=== PATIENT | male | born 1980 | race Caucasian/White ===

== ENCOUNTER → 2018-02-08 07:04 | Outpatient (CLI) | payer OTHER, SELFPAY ==
[2018-02-08 09:04] LABS: Alanine Aminotransferase 43 IU/L (21-72); Albumin 4.2 g/dL (3.5-5.0); Albumin Globulin Ratio 1.7 (1.0-2.8); Alkaline Phosphatase 64 U/L (38-126); Aspartate Aminotransferase 24 IU/L (17-59); Bilirubin Total 0.8 mg/dL (0.2-1.3); Bilirubin Unconjugated 0.6 mg/dL (0.0-1.1); Globulin 2.5 g/dL (1.7-4.1); HEMOLYSIS < 15 (0-50); Total Protein 6.7 g/dL (6.3-8.2)
== END ==
PROVIDERS: PCP Internal Medicine; Visit Provider Internal Medicine
DX: M10.9 Gout, unspecified (principal)
CPT/HCPCS: 36415; 80076; 84550

== ENCOUNTER → 2018-03-15 14:43 | Outpatient (CLI) | payer OTHER, SELFPAY ==
[2018-03-15 14:58] LABS: Add Manual Diff / Slide Review NO; Basophils Percent Auto 0.9 % (0-2); Eosinophils Percent Auto 2.8 % (2-4); Hematocrit 41.6 % (41-53); Lymphocytes Percent Auto 32.8 % (25-40); Mean Corpuscular HGB Conc 36.1 % (30-36); Mean Corpuscular Hemoglobin 29.5 PG (26-34); Mean Corpuscular Volume 81.6 fL (80-100); Monocytes Percent Auto 8.3 % (3-14); Neutrophils Absolute Auto 4200 /uL (3000-5900); Neutrophils Percent Auto 55.2 % (50-75); Platelet Count 234 X10^3/uL (150-400); Red Cell Distribution Width 13.2 % (11.6-14.8); White Blood Cell Count 7.7 X10^3/uL (4.5-11.0)
[2018-03-15 16:15] LABS: Alanine Aminotransferase 47 IU/L (21-72); Albumin 4.3 g/dL (3.5-5.0); Albumin Globulin Ratio 1.6 (1.0-2.8); Alkaline Phosphatase 60 U/L (38-126); Aspartate Aminotransferase 28 IU/L (17-59); Bilirubin Total 0.4 mg/dL (0.2-1.3); Bilirubin Unconjugated 0.1 mg/dL (0.0-1.1); Globulin 2.7 g/dL (1.7-4.1); HEMOLYSIS < 15 (0-50); Uric Acid 7.7 mg/dL (3.5-8.5)
== END ==
PROVIDERS: PCP Internal Medicine; Visit Provider Internal Medicine
DX: B35.1 Tinea unguium (principal); M10.9 Gout, unspecified
CPT/HCPCS: 36415; 80076; 84550; 85025

== ENCOUNTER → 2018-06-28 07:37 | Outpatient (CLI) | payer OTHER, SELFPAY ==
[2018-06-28 09:54] LABS: Alanine Aminotransferase 63 IU/L (21-72); Albumin 4.4 g/dL (3.5-5.0); Albumin Globulin Ratio 1.7 (1.0-2.8); Alkaline Phosphatase 65 U/L (38-126); Aspartate Aminotransferase 29 IU/L (17-59); BUN Creatinine Ratio 15.6 (6-22); Bilirubin Total 0.7 mg/dL (0.2-1.3); Blood Urea Nitrogen 14 mg/dL (9-20); Calcium 9.6 mg/dL (8.4-10.2); Carbon Dioxide 28 mmol/L (22-32); Chloride 100 mmol/L (98-107); Estimated Glomerular Filt Rate > 60.0 mL/min (>60); Globulin 2.6 g/dL (1.7-4.1); Glucose 88 mg/dL (70-100); HEMOLYSIS < 15 (0-50); Potassium 4.3 mmol/L (3.4-5.1); Sodium 142 mmol/L (137-145); Uric Acid 9.5 mg/dL (3.5-8.5)
== END ==
PROVIDERS: PCP Internal Medicine; Visit Provider Internal Medicine
DX: M10.9 Gout, unspecified (principal); R79.89 Other specified abnormal findings of blood chemistry
CPT/HCPCS: 36415; 80053; 84550

== ENCOUNTER → 2020-03-30 13:49 | Outpatient (CLI) | payer OTHER, SELFPAY ==
--- NOTE | 2020-03-30 | DI.MRI.S_ITS ---
PROCEDURE: MR HEAD/BRAIN WO/W CON INDICATIONS: Tremor, unspecified TECHNIQUE: Noncontrast axial T1 spin echo, axial T2 fast spin echo, sagittal and axial FLAIR, coronal T2 fast spin echo, axial gradient echo, axial diffusion and ADC through the brain. After the administration of contrast, axial and coronal 3D VIBE or T1 spin echo with fat saturation through the brain. COMPARISON: None. FINDINGS: Image quality: Excellent. CSF Spaces: Basal cisterns are patent. No extra-axial fluid collections. Ventricles are normal in size and shape. Brain: No midline shift. No intracranial bleeds or masses. No abnormal intracranial enhancement. The brainstem appears normal. Diffusion-weighted images demonstrate no acute ischemic insults. No chronic ischemic insults. Normal intravascular flow voids are present. Skull and face: Calvarial marrow is normal in signal. Orbits appear normal. Sinuses: Liked maxillary sinus retention cyst measuring 16 mm. Sinuses and mastoids otherwise appear clear. IMPRESSION: 1. Negative evaluation of the brain. 2. No acute process. No recent infarct. Dictated by: Chin Harris M.D. on 03/30/2020 at 15:50 Approved by: Chin Harris M.D. on 03/30/2020 at 15:51
== END ==
PROVIDERS: Family Provider Internal Medicine; PCP Internal Medicine; Referring Provider Internal Medicine; Visit Provider Internal Medicine
DX: R25.1 Tremor, unspecified (principal)
CPT/HCPCS: 70553

== ENCOUNTER → 2021-01-09 07:43 | Outpatient (CLI) | payer OTHER, SELFPAY ==
[2021-01-09 08:32] LABS: Add Manual Diff / Slide Review NO; Basophils Absolute Auto 100 /uL (0-100); Basophils Percent Auto 1.3 % (0-2); Eosinophils Absolute Auto 100 /uL (0-450); Eosinophils Percent Auto 1.9 % (2-4); Hematocrit 44.4 % (41-53); Hemoglobin 15.3 g/dL (13.5-17.5); Lymphocytes Absolute Auto 2300 /uL (1100-4500); Mean Corpuscular HGB Conc 34.4 % (30-36); Mean Corpuscular Hemoglobin 28.5 PG (26-34); Mean Corpuscular Volume 82.8 fL (80-100); Monocytes Absolute Auto 500 /uL (0-900); Monocytes Percent Auto 6.6 % (3-14); Neutrophils Absolute Auto 4600 /uL (1500-7000); Neutrophils Percent Auto 60.2 % (50-75); Platelet Count 245 X10^3/uL (150-400); Red Blood Cell Count 5.37 X10^6/uL (4.5-5.9); Red Cell Distribution Width 13.4 % (11.6-14.8); White Blood Cell Count 7.7 X10^3/uL (4.5-11.0)
[2021-01-09 08:56] LABS: Alanine Aminotransferase 95 IU/L (<50); Albumin 4.3 g/dL (3.5-5.0); Albumin Globulin Ratio 1.7 (1.0-2.8); Alkaline Phosphatase 66 U/L (38-126); Aspartate Aminotransferase 49 IU/L (17-59); BUN Creatinine Ratio 17.1 (6-22); Bilirubin Total 0.7 mg/dL (0.2-1.3); Blood Urea Nitrogen 14 mg/dL (9-20); Calcium 9.7 mg/dL (8.4-10.2); Carbon Dioxide 28 mmol/L (22-32); Chloride 103 mmol/L (98-107); Cholesterol 180 mg/dL (140-199); Estimated Glomerular Filt Rate > 60.0 mL/min (>60); Globulin 2.5 g/dL (1.7-4.1); Glucose 92 mg/dL (70-100); HDL Cholesterol 36 mg/dL (40-60); HEMOLYSIS < 15 (0-50); LDL Cholesterol Calculated 122 mg/dL (<100); Potassium 4.4 mmol/L (3.4-5.1); Sodium 138 mmol/L (137-145); Total Protein 6.8 g/dL (6.3-8.2); Triglycerides 110 mg/dL (35-150); Uric Acid 4.7 mg/dL (3.5-8.5)
[2021-01-09 09:23] LABS: Thyroid Stimulating Hormone 1.02 uIU/mL (0.47-4.68)
== END ==
PROVIDERS: Family Provider Internal Medicine; PCP Internal Medicine; Referring Provider Internal Medicine; Visit Provider Internal Medicine
DX: Z13.0 Encounter for screening for diseases of the blood and blood-forming organs and certain disorders involving the immune mechanism (principal); I10 Essential (primary) hypertension; E66.9 Obesity, unspecified; Z13.220 Encounter for screening for lipoid disorders; M10.9 Gout, unspecified; Z13.29 Encounter for screening for other suspected endocrine disorder
CPT/HCPCS: 36415; 80053; 80061; 84443; 84550; 85025

== ENCOUNTER 2022-04-18 07:33 | Emergency (ER) | payer OTHER, SELFPAY ==
[2022-04-18] VITALS (8 sets, daily range): BP systolic 127–154; BP diastolic 80–88; PULSE 85–190; RESP 12–24; TEMP 36.6; O2SAT 93–96; BMI 38.0
--- NOTE | 2022-04-18 07:48 | DI.RAD.S_ITS ---
PROCEDURE: XR CHEST 1V INDICATIONS: palpitations TECHNIQUE: One view of the chest was acquired. COMPARISON: [facility], , CHEST 2 VIEW, 05/31/2012, 15:25. FINDINGS: Surgical changes and devices: None. Lungs and pleura: Lungs are clear. No pleural effusions or pneumothorax. Mediastinum: Mediastinal contours appear normal. Heart size is normal. Bones and chest wall: No suspicious bony lesions. Overlying soft tissues appear unremarkable. IMPRESSION: No acute cardiopulmonary findings. Dictated by: Arlette Garza M.D. on 04/18/2022 at 8:15 Approved by: Arlette Garza M.D. on 04/18/2022 at 8:15
--- NOTE | 2022-04-18 07:50 | ED_ITS ---
HPI - General Adult General Chief complaint: Arrhythmia/Palpitations Stated complaint: Heart racing, SOB, clammy Time Seen by Provider: 04/18/22 07:43 History of Present Illness HPI narrative: Patient here for palpitations feeling short of breath and sweaty. Occurred just prior to arrival less than 30 minutes. Patient did not drink caffeine prior to onset. But did drink caffeine afterwards. Patient on monitor by nurse manager consumer insights, Tia, able to print off rhythm strip showing SVT. Rate 191. Rhythm strip was printed off. Patient resolved with vagal maneuvers. Now in sinus rhythm. Feeling much better. Patient states this has happened to him before and was seen in hospital however resolved prior to arrival and was in sinus rhythm. Never had to be converted. No prior heart problems. Has early Parkinson's but on no medications is being followed by his primary care and neurologist. No drug use. No family history of arrhythmia. Related Data Previous Rx's Medication Instructions Recorded lisinopril 20 mg tablet 30 mg PO DAILY #135 tabs 06/22/18 propranolol 20 mg tablet 20 mg PO BID #180 tabs 06/22/18 allopurinol 100 mg tablet 100 mg PO DAILY gout, elevated 06/28/18 uric acid level #90 tabs indomethacin 50 mg capsule 50 mg PO TID PRN gout #30 caps 06/28/18 metoprolol succinate 25 mg 25 mg PO DAILY #30 tabs 04/18/22 tablet,extended release 24 hr Allergies Allergy/AdvReac Type Severity Reaction Status Date / Time albuterol [ALBUTEROL] Allergy Severe Chest pain Verified 09/19/21 07:36 / Joint pain sulfamethoxazole Allergy Mild Rash Verified 09/19/21 07:36 [SULFAMETHOXAZOLE] trimethoprim [TRIMETHOPRIM] Allergy Mild Rash Verified 09/19/21 07:36 Review of Systems Review of Systems Narrative: GENERAL: Denies chills, fatigue, malaise, fever, positive sweats. HEENT: Denies sinus pain, ear pain, sore throat RESPIRATORY: Positive dyspnea, negative cough CARDIOVASCULAR: Denies chest pain, positive palpitations GASTROINTESTINAL: Denies nausea, vomiting, abdominal pain : Denies dysuria, frequency, hematuria MUSCULOSKELETAL: denies muscle or bony pain SKIN: Denies rash, skin lesions NEUROLOGIC: Denies weakness, numbness ROS Unobtainable: All systems reviewed & are unremarkable except as noted in HPI and below Patient History Social History Smoking Status: Never smoker Smoking Status: Never smoker Exam Narrative Exam Narrative: GENERAL: in no distress, not toxic not dyspneic HEAD: Normocephalic. EYES: Pupils equal round No scleral icterus. ENT: Mucous membranes moist. NECK: Trachea midline. No thyromegaly CARDIOVASCULAR: Regular rate and rhythm without murmurs, symptoms resolved by the time I saw patient. RESPIRATORY: Clear to auscultation. Breath sounds equal bilaterally. No wheezes, rales, or rhonchi. GASTROINTESTINAL: Abdomen soft, non-tender EXTREMITIES: No gross deformities. BACK: No flank tenderness. NEURO: AOx4. SKIN: Warm and dry PSYCH: Not anxious, is cooperative Initial Vital Signs Initial Vital Signs: Vital Signs Temperature 97.8 F 04/18/22 07:35 Pulse Rate 190 H 04/18/22 07:35 Respiratory Rate 24 04/18/22 07:35 Blood Pressure 154/87 H 04/18/22 07:35 Pulse Oximetry 95 04/18/22 07:35 Oxygen Delivery Method 04/18/22 07:35 Course Course Course Narrative: No new issues during course of stay Orders Ordered: Discontinued Medications Metoprolol Succinate (Metoprolol Er 25 Mg Tablet) 25 mg PO NOW ONE Stop: 04/18/22 08:46 Last Admin: 04/18/22 08:58 Dose: Not Given Documented By: CHENG Reevaluation(s) Reevaluation #1: Symptoms have resolved after vagal maneuvers. Patient has no complaints at this time. Awaiting for laboratory results Time: 07:53 Reevaluation #2: Reviewed results with patient. He is on lisinopril. He did take it this morning. He states propranolol made him very tired in the past he does not take that anymore. But he is willing to try metoprolol. He will start that tomorrow morning. He will hold on the lisinopril to prevent low blood pressure. If can not tolerate metoprolol then he will resume lisinopril. Return precautions reviewed with him. Follow up instructions given. Time: 08:57 Consultations Consultation #1: Spoke with Dr. Diallo, cardiology. Recommends patient follow-up with Dr. Vallejo. Start metoprolol succinate 25 mg daily. Time: 08:51 Vital Signs Vital signs: Vital Signs - 8 hr 04/18/22 07:35 04/18/22 07:39 04/18/22 07:45 Temperature 97.8 F Pulse Rate 190 H 92 H 89 Respiratory Rate 24 13 15 Blood Pressure 154/87 H Pulse Oximetry 95 96 96 Oxygen Delivery Method Room Air Medical Decision Making Differential Diagnosis Differential Diagnosis: SVT/a flutter/AFib Lab Data Result diagrams: 04/18/22 07:41 04/18/22 07:41 Labs: Lab Results 04/18/22 04/18/22 04/18/22 Range/Units 07:41 07:41 07:41 WBC 13.2 H (4.5-11.0) X10^3/uL RBC 5.76 (4.5-5.9) X10^6/uL Hgb 16.7 (13.5-17.5) g/dL Hct 47.3 (41-53) % MCV 82.0 (80-100) fL MCH 29.0 (26-34) PG MCHC 35.3 (30-36) % RDW 13.4 (11.6-14.8) % Plt Count 332 (150-400) X10^3/uL Neut % (Auto) 46.5 L (50-75) % Lymph % (Auto) 39.0 (25-40) % Treasure % (Auto) 9.3 (3-14) % Eos % (Auto) 4.2 H (2-4) % Baso % (Auto) 1.0 (0-2) % Neut # (Auto) 6100 (8797-7379) /uL Lymph # (Auto) 5200 H (8296-7591) /uL Treasure # (Auto) 1200 H (0-900) /uL Eos # (Auto) 600 H (0-450) /uL Baso # (Auto) 100 (0-100) /uL Sodium 139 (137-145) mmol/L Potassium 4.1 (3.4-5.1) mmol/L Chloride 102 (98-107) mmol/L Carbon Dioxide 29 (22-32) mmol/L BUN 15 (9-20) mg/dL Creatinine 0.95 (0.66-1.25) mg/dL Estimated GFR > 60 (>60) mL/min BUN/Creatinine Ratio 15.8 (6-22) Glucose 110 H (70-100) mg/dL Calcium 9.1 (8.4-10.2) mg/dL Magnesium 2.1 (1.6-2.3) mg/dL Total Bilirubin 0.8 (0.2-1.3) mg/dL AST 45 (17-59) IU/L ALT 85 H (<50) IU/L Alkaline Phosphatase 71 (38-126) U/L Total Protein 7.4 (6.3-8.2) g/dL Albumin 4.4 (3.5-5.0) g/dL Globulin 3.0 (1.7-4.1) g/dL Albumin/Globulin Ratio 1.5 (1.0-2.8) TSH 1.35 (0.47-4.68) uIU/mL Imaging Data Chest x-ray: Radiologist's Impression: [address] [address] XRay Report Signed Patient: Varun England MR#: [id number] : 1980 Acct:[id number] Age/Sex: 42 / M Date of Service: 04/18/22 Loc: ED Accession Number: [id number] ?? Procedure: XR chest 1V Ordering Provider: Moncho Metz MD PROCEDURE:? XR CHEST 1V ? INDICATIONS:? palpitations ? TECHNIQUE:? One view of the chest was acquired.? ? COMPARISON:? [facility], , CHEST 2 VIEW, 05/31/2012, 15:25. ? FINDINGS:? ? Surgical changes and devices:? None.? ? Lungs and pleura:? Lungs are clear.? No pleural effusions or pneumothorax.? ? Mediastinum:? Mediastinal contours appear normal.? Heart size is normal.? ? Bones and chest wall:? No suspicious bony lesions.? Overlying soft tissues appear unremarkable.? ? IMPRESSION:? No acute cardiopulmonary findings. ? ? Dictated by: Arlette Garza M.D. on 04/18/2022 at 8:15 ? ? Approved by: Arlette Garza M.D. on 04/18/2022 at 8:15 ? ECG Data Interpretation: Normal sinus rhythm normal EKG rate 84 MDM Narrative Medical decision making narrative: Appropriate for discharge home exam and laboratory studies and imaging are reassuring. I did review with cardiology for follow-up instructions. Patient agrees with treatment plan. Patient understands he will resume lisinopril if he can not tolerate metoprolol. He understands he would not take both of them together. Discharge Plan Departure Patient Disposition: Home Clinical Impression: Supraventricular tachycardia Instructions: DI for Paroxysmal Supraventricular Tachycardia Activity Restrictions/Additional Instructions: Please call Dr. Vallejo office today to make appointment. No alcohol or caffeine products. Return if worse if any questions or concerns. The rhythm that your heart was in today was supraventricular tachycardia. You may try maneuvers that we did today if this occurs again. If no improvement then return to the emergency department. You have been prescribed metoprolol medication for your heart. You may start this tomorrow morning. Stop taking lisinopril. Did not take both of these medications together. If you can not tolerate metoprolol then you may resume taking lisinopril by itself. Prescriptions: New metoprolol succinate 25 mg tablet extended release 24 hr 25 mg PO DAILY Qty: 30 0RF No Action indomethacin 50 mg capsule 50 mg PO TID PRN (Reason: gout) Qty: 30 3RF Rx Instructions: administer with food or milk allopurinol 100 mg tablet 100 mg PO DAILY Qty: 90 3RF lisinopril 20 mg tablet 30 mg PO DAILY Qty: 135 3RF propranolol 20 mg tablet 20 mg PO BID Qty: 180 3RF Rx Instructions: Take one tablet by mouth twice daily Referrals: Fredi Vallejo MD [Physician] - Gina Aquino ARNP [Primary Care Provider] - Visit Report Forms: Patient Portal/API
[2022-04-18 07:56] LABS: Add Manual Diff / Slide Review NO; Basophils Absolute Auto 100 /uL (0-100); Eosinophils Absolute Auto 600 /uL (0-450); Eosinophils Percent Auto 4.2 % (2-4); Hematocrit 47.3 % (41-53); Hemoglobin 16.7 g/dL (13.5-17.5); Lymphocytes Absolute Auto 5200 /uL (1100-4500); Mean Corpuscular HGB Conc 35.3 % (30-36); Monocytes Absolute Auto 1200 /uL (0-900); Monocytes Percent Auto 9.3 % (3-14); Neutrophils Absolute Auto 6100 /uL (1500-7000); Neutrophils Percent Auto 46.5 % (50-75); Platelet Count 332 X10^3/uL (150-400); Red Blood Cell Count 5.76 X10^6/uL (4.5-5.9); Red Cell Distribution Width 13.4 % (11.6-14.8); White Blood Cell Count 13.2 X10^3/uL (4.5-11.0)
[2022-04-18 08:03] LABS: Alanine Aminotransferase 85 IU/L (<50); Albumin 4.4 g/dL (3.5-5.0); Albumin Globulin Ratio 1.5 (1.0-2.8); Alkaline Phosphatase 71 U/L (38-126); Aspartate Aminotransferase 45 IU/L (17-59); BUN Creatinine Ratio 15.8 (6-22); Bilirubin Total 0.8 mg/dL (0.2-1.3); Blood Urea Nitrogen 15 mg/dL (9-20); Calcium 9.1 mg/dL (8.4-10.2); Carbon Dioxide 29 mmol/L (22-32); Chloride 102 mmol/L (98-107); Estimated Glomerular Filt Rate > 60 mL/min (>60); Glucose 110 mg/dL (70-100); HEMOLYSIS 22 (0-50); Magnesium 2.1 mg/dL (1.6-2.3); Potassium 4.1 mmol/L (3.4-5.1); Sodium 139 mmol/L (137-145); Total Protein 7.4 g/dL (6.3-8.2)
[2022-04-18 08:39] LABS: Thyroid Stimulating Hormone 1.35 uIU/mL (0.47-4.68)
--- NOTE | 2022-04-18 09:08 | PC.NURSE ---
in SVT at triage, now resolved with valsava manuevars and raising of legs.
== END 2022-04-18 09:09 | disposition home or self-care (01) ==
PROVIDERS: Emergency Provider Emergency Medicine; Family Provider Internal Medicine; PCP Internal Medicine
DX: I47.1 Supraventricular tachycardia (principal)
CPT/HCPCS: 36415; 71045; 80053; 83735; 84443; 85025; 93005; 99283; 99284

== ENCOUNTER → 2023-08-21 12:50 | Outpatient (CLI) | payer OTHER, SELFPAY ==
--- NOTE | 2023-08-21 12:52 | DI.CT.S_ITS ---
PROCEDURE: CT SHOULDER LEFT WITHOUT CON INDICATIONS: SURGICAL PLANNING SHOULDER REPLACEMENT. LEFT SHOULDER PAIN TECHNIQUE: Noncontrast 1-1.5 mm thick sections acquired from the acromioclavicular joint to the inferior scapula, with coronal and sagittal reformatting. COMPARISON: None. FINDINGS: Image quality: Diagnostic. Significant beam hardening artifacts from shoulder prosthesis are seen. Bones: Patient is status post prior left shoulder arthroplasty with surgical hardware in place causing significant beam hardening artifacts. No acute fracture or dislocation. No gross hardware loosening or failure. Moderate acromioclavicular joint osteoarthritic changes are seen. The visualized left upper ribs are intact. Soft tissues: There is superior migration of humeral head prosthesis in relation to glenoid with loss of subacromial space which can be seen associated with full-thickness rotator cuff tendon ruptures suggest clinical correlation. Sagittal views shows no significant rotator cuff muscle atrophy. No abnormal soft tissue calcifications. There is small to moderate amount of joint effusion and subacromial subdeltoid bursal fluid. Possible loose body within anterior aspect of glenohumeral joint space is seen with rim calcification and measures up to 2 x 1.4 x 1.7 cm in size. IMPRESSION: 1. Prior left shoulder arthroplasty. No definite hardware loosening or failure. Superior migration of humeral head prosthesis in relation to glenoid, which may indicate polyethylene wear. No acute fracture or dislocation. Moderate acromioclavicular joint osteoarthritis. 2. Small to moderate amount of joint effusion with suggestion of rim calcified loose body in anterior aspect of glenohumeral joint as above. 3. Significant decreased subacromial space, which can be seen associated with rotator cuff tendon rupture suggest clinical correlation. No significant rotator cuff muscle atrophy. No other abnormal soft tissue calcifications. Dictated by: Ed Perkins M.D. on 08/21/2023 at 15:33 Approved by: Ed Perkins M.D. on 08/21/2023 at 15:40
== END ==
PROVIDERS: Family Provider Internal Medicine; PCP Internal Medicine; Referring Provider Orthopaedic Surgery; Visit Provider Orthopaedic Surgery
DX: Z96.612 Presence of left artificial shoulder joint (principal); Z09 Encounter for follow-up examination after completed treatment for conditions other than malignant neoplasm; M19.012 Primary osteoarthritis, left shoulder
CPT/HCPCS: 73200; Q9967